=== PATIENT | female | born 1965 | race Hispanic/Latino ===

== ENCOUNTER 2024-04-07 22:05 | Emergency (ER) | payer BC, OTHER | END 2024-04-07 22:58 | disposition home or self-care (01) | LOC: CSHERS 22:05 | DX: S39.012A Strain of muscle, fascia and tendon of lower back, initial encounter (principal); V49.50XA Passenger injured in collision with unspecified motor vehicles in traffic accident, initial encounter | CPT/HCPCS: 99283 ==